=== PATIENT | female | born 1955 | race Caucasian/White ===

== ENCOUNTER 2017-01-24 12:45 | Emergency (ER) | payer BC ==
[~2017-01-24] VITALS: Ht 154.9 cm; Wt 98.1 kg
[~2017-01-24 12:45] MED LIST: ACETAMINOPHN-T1 EACH PO; ASPIR-LOW81 MG PO; BENTYL20 MG PO; Bactrim,Septra DS 80 PO; CIPRO500 MG PO; COREG12.5 M1 PO; CRESTOR10 MG PO; Coreg PO; FLAGYL500 MG PO; HYDRODIURIL,O12.5 M2 PO; KAPIDEX60 MG PO; Lopid PO; METFORMIN HCL500 MG PO; PERCOCET 5/31 TABLET PO; PRAVASTATIN SOD20 MG PO; ZOFRAN4 MG PO; celeXA PO
[2017-01-24 13:13] LABS: HEMATOCRIT 38.9 % (36.0-46.0); MCH 32.6 PG (29.0-34.0); MCHC 34.4 G/DL (30.0-36.0); MCV 94.6 FL (83-99); PLATELET COUNT 417 K/uL (156-360); RBC DIS.WIDTH-CV 12.7 % (11.8-14.6); RBC DIS.WIDTH-SD 43.8 % (39-53); RED BLOOD COUNT 4.11 M/uL (3.80-5.20)
[2017-01-24 13:27] LABS: CHLORIDE 103 mEq/L (99-109); POTASSIUM 4.8 mEq/L (3.7-5.4); SODIUM 139 mEq/L (136-147)
[2017-01-24 13:29] LABS: GLUCOSE 95 mg/dL (70-99)
[2017-01-24 13:30] LABS: ANION GAP 11 MEQ/L (2-14)
[2017-01-24 13:33] LABS: GFR ESTIMATE (CALCULATED) > 59 mL/min/
[2017-01-24 13:34] LABS: UREA NITROGEN (BUN) 16 mg/dL (9-23)
[2017-01-24 13:41] LABS: ADD MIUA? YES; BILIRUBIN NEGATIVE; BLOOD MODERATE; COLOR YELLOW ((YELLOW)); GLUCOSE (STRIP) NEGATIVE; KETONES NEGATIVE; LEUKOCYTES TRACE; NITRITE NEGATIVE; PROTEIN (STRIP) 30; SPECIFIC GRAVITY 1.018 (1.000-1.030); UROBILINOGEN 0.2 MG/DL (0.2-1.0)
[2017-01-24 13:47] LABS: BACTERIA NONE SEEN /HPF; CALCIUM OXALATE CRYSTALS 1+ /HPF; EPITHELIAL CELLS RARE /HPF; HYALINE CASTS 0-5 /LPF; MUCUS TRACE /LPF; UCUL ADDED? YES
[2017-01-24] MEDS ORDERED: TRAMADOL HCL50 MG PO (17:16)
[2017-01-24] MEDS ORDERED: NAPROSYN500 MG PO (17:16)
[2017-01-24 17:28] VITALS: BP 145/109
== END 2017-01-24 17:28 | disposition home or self-care (01) ==
LOC: EME 12:45
DX: M46.1 Sacroiliitis, not elsewhere classified (principal); R10.9 Unspecified abdominal pain; R11.0 Nausea; K57.50 Diverticulosis of both small and large intestine without perforation or abscess without bleeding; K76.0 Fatty (change of) liver, not elsewhere classified; Z90.710 Acquired absence of both cervix and uterus; Z90.49 Acquired absence of other specified parts of digestive tract; I10 Essential (primary) hypertension; Z79.84 Long term (current) use of oral hypoglycemic drugs; Z79.82 Long term (current) use of aspirin
CPT/HCPCS: 74176; 80048; 81003; 85027; 87086; 99281; 99283; J1885

== ENCOUNTER → 2017-11-22 | Outpatient (CLI) | payer BC ==
[~2017-11-22] VITALS: Ht 156.2 cm; Wt 68.5 kg
[~2017-11-22] MED LIST changes: +AMLOD-VALSA-HC1 EAC2 PO; +BENTYL10 MG PO; +CALTRATE 600 +1 EAC1 PO; +LIVALO1 MG PO; +NAPROSYN500 MG PO; +NEXIUM40 MG PO; +ODOR FREE GARL1 EAC1 PO; +PROBIOTIC1 EAC3 PO; +PROZAC20 MG PO; +TANZEUM30 MG/0.5 SC; +TRAMADOL HCL50 MG PO; +VASCEPA1 GM PO
== END | disposition home or self-care (01) ==
LOC: AMB 11:06
PROVIDERS: Internal Medicine
PROC: 0DB68ZX Excision of Stomach, Via Natural or Artificial Opening Endoscopic, Diagnostic (ICD-10-PCS; principal; 2017-11-22)
PROC: 0DB98ZX Excision of Duodenum, Via Natural or Artificial Opening Endoscopic, Diagnostic (ICD-10-PCS; principal; 2017-11-22)
PROC: 0DBE8ZX Excision of Large Intestine, Via Natural or Artificial Opening Endoscopic, Diagnostic (ICD-10-PCS; principal; 2017-11-22)
DX: K52.9 Noninfective gastroenteritis and colitis, unspecified (principal); K29.50 Unspecified chronic gastritis without bleeding; K57.30 Diverticulosis of large intestine without perforation or abscess without bleeding; K64.9 Unspecified hemorrhoids
CPT/HCPCS: 82948; 88305; 88342 TC; J7643